=== PATIENT | female | born 1990 | race Caucasian/White ===

== ENCOUNTER 2017-04-04 18:18 | Inpatient (IN) | payer MEDICAID, OTHER ==
[2017-04-04 18:18] VITALS: BMI 19.3
[2017-04-04 18:21] VITALS: O2SAT 98
--- NOTE | 2017-04-04 19:45 | ED PDOC ---
HPI: Psych/Substance Abuse Time Seen by Provider: 04/04/17 19:20 Chief Complaint (Nursing): Psychiatric Evaluation History Per: Patient (26 Y/O FEMALE BROUGHT TO ED FOR EVALUATION OF EMOTIONAL CRISIS. PATIENT'S CUT HERSELF TODAY AND UPSET PATIENT. PATIENT STATES SHE HAS H/O DEPRESSION AND HAS BEEN OFF OF MEDICATIONS SINCE MOVE FROM [place]. IS CURRENTLY ONLY TAKING TEGRETOL FOR SEIZURES.) Past Medical History Reviewed: Historical Data, Nursing Documentation, Vital Signs Vital Signs: Last Vital Signs Temp 98.4 F 04/04/17 18:19 Pulse 84 04/04/17 18:19 Resp 18 04/04/17 18:19 BP 111/71 04/04/17 18:19 Pulse Ox 98 04/04/17 18:19 - Medical History PMH: Anxiety, Depression, Seizures - Family History Family History: States: Unknown Family Hx - Immunization History Hx Tetanus Toxoid Vaccination: Yes (2014) Hx Pneumococcal Vaccination: Yes - Home Medications Home Medications: Ambulatory Orders Medication Instructions Recorded Bacitracin 1 gm TOP BID #1 tube 11/02/15 Carbamazepine 200 mg PO TID 07/13/16 - Allergies Allergies/Adverse Reactions: Allergies Allergy/AdvReac Type Severity Reaction Status Date / Time shrimp Allergy Verified 08/18/16 14:40 Review of Systems ROS Statement: Except As Marked, All Systems Reviewed And Found Negative Physical Exam - Reviewed Nursing Documentation Reviewed: Yes Vital Signs Reviewed: Yes - Physical Exam Appears: Positive for: Well, Non-toxic, No Acute Distress Head Exam: Positive for: ATRAUMATIC, NORMAL INSPECTION, NORMOCEPHALIC Skin: Positive for: Normal Color, Warm, DRY Eye Exam: Positive for: EOMI, Normal appearance, PERRL ENT: Positive for: Normal ENT Inspection Neck: Positive for: Normal, Painless ROM Cardiovascular/Chest: Positive for: Regular Rate, Rhythm Respiratory: Positive for: CNT, Normal Breath Sounds Gastrointestinal/Abdominal: Positive for: Normal Exam, Bowel Sounds, Soft Back: Positive for: Normal Inspection Extremity: Positive for: Normal ROM Neurologic/Psych: Positive for: Alert, Oriented - Laboratory Results Urine POC: Negative - ECG O2 Sat by Pulse Oximetry: 98 Disposition - Clinical Impression Clinical Impression: Emotional crisis - Patient ED Disposition Is Patient to be Admitted: Transfer of Care - Disposition Disposition: Transfer of Care Disposition Time: 20:00 Condition: FAIR Forms: [facility] (Mongolian) Patient Signed Over To: Ayana Wilson Handoff Comments: CRISIS EVAL
[2017-04-04 19:56] LABS: BASO % 0.4 % (0.0-2.0); EOS # 0.3 K/uL (0.0-0.7); EOS % 2.5 % (0.0-4.0); HEMOGLOBIN 13.1 g/dL (12.0-16.0); LYMPH # 2.2 K/uL (1.0-4.3); LYMPH % 20.6 % (20.0-40.0); MEAN CELL VOLUME 90.2 fl (81.0-99.0); MEAN CORPUSCULAR HEMOGLOBIN 30.1 pg (27.0-31.0); MEAN CORPUSCULAR HGB CONC 33.4 g/dL (33.0-37.0); MEAN PLATELET VOLUME 8.9 fl (7.2-11.7); MONO # 0.4 K/uL (0.0-0.8); MONO % 4.1 % (0.0-10.0); NEUT # 7.8 K/uL (1.8-7.0); NEUT % 72.4 % (50.0-75.0); RBC 4.34 Mil/uL (3.80-5.20); RED CELL DISTRIBUTION WIDTH 13.2 % (11.5-14.5); WHITE BLOOD COUNT 10.7 K/uL (4.8-10.8)
[2017-04-04 20:08] LABS: ALB/GLOB RATIO 1.4 (1.0-2.1); ALBUMIN 4.5 g/dL (3.5-5.0); ALT/SGPT 31 U/L (9-52); AST/SGOT 26 U/L (14-36); BLOOD UREA NITROGEN 11 mg/dl (7-17); CALCIUM 9.3 mg/dL (8.4-10.2); GFR AFRICAN-AMERICAN > 60; GFR NON-AFRICAN AMERICAN > 60
[2017-04-04 20:19] LABS: BARBITURATES, UR NEGATIVE (NEGATIVE); BENZODIAZEPINES, UR NEGATIVE (NEGATIVE); OPIATES, UR NEGATIVE (NEGATIVE); PHENCYCLIDINE, UR NEGATIVE (NEGATIVE)
--- NOTE | 2017-04-04 20:23 | ED PDOC ---
- Laboratory Results Result Diagrams: 04/04/17 19:49 04/04/17 19:49 Urine POC: Negative - ECG ECG Rhythm: Positive for: Normal QRS, Normal ST Segment, Sinus Rhythm O2 Sat by Pulse Oximetry: 98 - Radiology X-Ray: Interpreted by Me X-Ray Interpretation: No Acute Disease - Progress ED Course And Treament: pt signed out to [facility] pending crisis eval. labs: WNL Medical Decision Making Medical Decision Making: Pt admits to crisis that there were multiple suicidal attempts. Pt [place] [facility] but declined. PT will be placed on 1:1 and Chest xray, EKG ordered. pt take Tegretol 200mg daily for seizures-will be ordered. PT is medically stable for [facility] [place] 00:00Pt agreed to signing into [facility] floor voluntary will be admitted for unspecified depressive d/o under MD gregg Disposition - Clinical Impression Clinical Impression: Depressive disorder - POA Present On Arrival: None - Disposition Disposition: Admitted as In-Patient Disposition Time: 00:01 Condition: STABLE Progress Note - Review of Symptoms General: No: Chills, Night Sweats, Fatigue, Malaise, Appetite, Other HEENT: No: Head Aches, Visual Changes, Eye Pain, Ear Pain, Dysphasia, Sinus Congestion, Post Nasal Drip, Sore Throat, Other Pulmonary: No: Dyspnea, Cough, Pleuritic Chest Pain, Other Cardiovascular: No: Chest Pain, Palpitations, Orthopnea, Paroxysmal Noc. Dyspnea , Edema, Light Headedness, Other Gastrointestinal: No: Nausea, Vomiting, Abdominal Pain, Diarrhea, Constipation, Melena, Hematochezia, Other Genitourinary: No: Dysuria, Frequency, Incontinence, Hematuria, Retention, Other Musculoskeletal: No: Muscle Pain, Joint Pain, Other Neurological: No: Weakness, Numbness, Incoordination, Change in speech, Confusion, Seizures, Other
[2017-04-04 20:24] LABS: SQUAMOUS EPITHIAL 3 /hpf (0-5); URINE BACTERIA RARE (<OCC); URINE BILIRUBIN NEGATIVE (NEGATIVE); URINE BLOOD NEGATIVE (NEGATIVE); URINE CLARITY CLOUDY (Clear); URINE COLOR YELLOW (YELLOW); URINE GLUCOSE (UA) NEG (Normal); URINE LEUKOCYTE ESTERASE NEG Leu/uL (Negative); URINE NITRATE NEGATIVE (NEGATIVE); URINE PROTEIN 30 mg/dL (NEGATIVE); URINE UROBILINOGEN 0.2-1.0 mg/dL (0.2-1.0)
[2017-04-04] MEDS ORDERED: carBAMazepine Chew Tab 100 MG Chew Tab ONE (22:41)
[2017-04-04] MEDS ORDERED: carBAMazepine Chew Tab 100 MG Chew Tab PO STA (22:42)
[2017-04-05] MEDS ORDERED: DiphenhydrAMINE 50 mg/ml Inj IM PRN (03:41)
[2017-04-05] MEDS ORDERED: Alum-Mag Hydrox-Simethicone Susp (30 mL) PO PRN (03:41)
[2017-04-05] MEDS ORDERED: Magnesium Hydroxide Susp 30 ml UD PO PRN (03:41)
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
[2017-04-05 08:36] LABS: HDL CHOLESTEROL 41 MG/DL (30-70)
[2017-04-05 08:46] LABS: LDL CHOLESTEROL 69 mg/dL (0-129)
[2017-04-05 09:14] VITALS: RESP 18
--- NOTE | 2017-04-05 11:16 | RAD ---
HISTORY: medical eval COMPARISON: No prior. TECHNIQUE: Chest PA and lateral FINDINGS: LUNGS: No active pulmonary disease. PLEURA: No significant pleural effusion identified. No pneumothorax apparent. CARDIOVASCULAR: Normal. OSSEOUS STRUCTURES: No significant abnormalities. VISUALIZED UPPER ABDOMEN: Normal. OTHER FINDINGS: None. IMPRESSION: No active disease.
--- NOTE | 2017-04-05 12:10 | CP.PCM.CON ---
History of Present Illness - History of Present Illness History of Present Illness: Pt is a 26 yo F with PMH of seizures, and psychiatric history of depression and anxiety who is admitted to the inpatient psychiatric unit due to suicidal ideation, depression and anxiety. Pt has had Pt states that her seizures started when she was 6 years old, and when she was 7-8, she was put on tegretol , the dose of which was increased gradually until current dose of 200 mg twice a day, which she has been on since age 15. Reports that last seizure was 2 days ago after which she was taken to [facility]; states that her seizures have a prodrome of feeling numbness in her extremities and especially her face, after which she loses consciousness. Reports that her seizures do not include tongue biting or incontinence. She reports that she has had 12 seizures in the past 2 months, most of which happened in [place], [place], which is where she and her were living until 3 weeks ago, and that she went to the hospital each time. She reports that she was seeing a neurologist in [place], but has not found one here yet since she has moved back. No PMD at this time Allergies: NKDA Denies past medical issues except for seizures. Past surgical history: x 2 OBGYN hx: menarche age 13, has had irregular cycle since menarche. LMP 2 months ago, pt denies possibility that she is . , 1 miscarriage at 3 weeks , pt does not know reason for miscarriage. Social Hx: Smokes 1PPD x 15 yrs, denies EtOH use, admits to frequent marijuana use but denies other drug use (cocaine, heroin, prescription painkillers). Lives in alf with . Pt is sexually active with , denies other partners. States she was recently screened for HIV. ROS: Positive for insomnia, anxiety. No unintentional weight loss, no fevers, chills. No skin changes, no rashes. No changes in vision, hearing. No chest pain, no palpitations. No shortness of breath. No cough or wheeze. No changes in toileting, no blood in stool or urine, no changes in urinating or stooling. No hot flashes, excessive sweating. No generalized or specific muscle pains/aches. Review of Systems - Constitutional Constitutional: As Per HPI - EENT Eyes: As Per HPI - Cardiovascular Cardiovascular: As Per HPI - Respiratory Respiratory: As Per HPI - Gastrointestinal Gastrointestinal: As Per HPI - Genitourinary Genitourinary: As Per HPI - Reproductive: Female Reproductive:Female: As Per HPI - Menstruation Menstruation: As Per HPI - Musculoskeletal Musculoskeletal: As Per HPI - Integumentary Integumentary: As Per HPI - Neurological Neurological: As Per HPI - Psychiatric Psychiatric: As Per HPI - Endocrine Endocrine: As Per HPI - Hematologic/Lymphatic Hematologic: As Per HPI Past Patient History - Tetanus Immunizations Tetanus Immunization: Unknown - Past Social History Smoking Status: Heavy Smoker > 10 Cigarettes Daily Alcohol: None Drugs: Cannabis - CARDIAC Hx Cardiac Disorders: No Hx Hypertension: No - PULMONARY Hx Respiratory Disorders: No Hx Tuberculosis: No - NEUROLOGICAL Hx Neurological Disorder: Yes HX Cerebrovascular Accident: No Hx Seizures: Yes - HEENT Hx HEENT Problems: No - RENAL Hx Chronic Kidney Disease: No - ENDOCRINE/METABOLIC Hx Endocrine Disorders: No - HEMATOLOGICAL/ONCOLOGICAL Hx Blood Disorders: No Hx Cancer: No Hx Human Immunodeficiency Virus (HIV): No - INTEGUMENTARY Hx Dermatological Problems: No - MUSCULOSKELETAL/RHEUMATOLOGICAL Hx Musculoskeletal Disorders: No - GASTROINTESTINAL Hx Gastrointestinal Disorders: No - GENITOURINARY/GYNECOLOGICAL Hx Genitourinary Disorders: No Hx Sexually Transmitted Disorders: No - PSYCHIATRIC Hx Psychophysiologic Disorder: Yes Hx Anxiety: Yes Hx Depression: Yes Hx Substance Use: Yes - SURGICAL HISTORY Hx Surgeries: Yes Hx Section: Yes (x2) - ANESTHESIA Hx Anesthesia: Yes Hx Anesthesia Reactions: No Hx Malignant Hyperthermia: No Meds Allergies/Adverse Reactions: Allergies Allergy/AdvReac Type Severity Reaction Status Date / Time shrimp Allergy Verified 08/18/16 14:40 - Medications Medications: Current Medications Acetaminophen (Tylenol 325mg Tab) 650 mg PO Q4 PRN PRN Reason: Pain, moderate (4-7) Al Hydrox/Mg Hydrox/Simethicone (Maalox Plus 30 Ml) 30 ml PO Q4 PRN PRN Reason: Dyspepsia Carbamazepine (Tegretol) 200 mg PO BID KAREN Last Admin: 04/05/17 09:34 Dose: 200 mg Diphenhydramine HCl (Benadryl) 50 mg IM Q6 PRN PRN Reason: Extrapyramidal S/S Unable PO Diphenhydramine HCl (Benadryl) 50 mg PO HS PRN PRN Reason: Sleep Haloperidol (Haldol) 5 mg PO Q4 PRN PRN Reason: Agitation Haloperidol Lactate (Haldol) 5 mg IM Q4 PRN PRN Reason: Agitation, Unable to Take PO Lorazepam (Ativan) 2 mg IM Q4 PRN PRN Reason: Anxiety/Agitation,Unable PO Lorazepam (Ativan) 1 mg PO Q4 PRN PRN Reason: Anxiety/Agitation Magnesium Hydroxide (Milk Of Magnesia) 30 ml PO HS PRN PRN Reason: Constipation Physical Exam - Constitutional Appears: Non-toxic, No Acute Distress - Head Exam Head Exam: NORMAL INSPECTION - Eye Exam Eye Exam: EOMI, Normal appearance, PERRL - ENT Exam ENT Exam: Mucous Membranes Moist - Respiratory Exam Respiratory Exam: Clear to Auscultation Bilateral, NORMAL BREATHING PATTERN. absent: Wheezes - Cardiovascular Exam Cardiovascular Exam: REGULAR RHYTHM, +S1, +S2 - GI/Abdominal Exam GI & Abdominal Exam: Normal Bowel Sounds, Soft - Extremities Exam Extremities exam: Positive for: full ROM, normal inspection. Negative for: calf tenderness, joint swelling - Neurological Exam Neurological exam: Alert, Oriented x3 - Skin Skin Exam: Dry, Normal Color, Warm Results - Vital Signs Recent Vital Signs: Last Vital Signs Temp 97.2 F L 04/05/17 09:13 Pulse 55 L 04/05/17 09:13 Resp 18 04/05/17 09:13 BP 105/53 L 04/05/17 09:13 Pulse Ox 98 04/05/17 04:27 - Labs Result Diagrams: 04/04/17 19:49 04/04/17 19:49 Labs: Laboratory Results - last 24 hr 04/05/17 07:45 Triglycerides 65 Cholesterol 132 LDL Cholesterol Direct 69 HDL Cholesterol 41 Assessment & Plan - Assessment and Plan (Free Text) Assessment: This is a 26 yo F with pmh seizure disorder, anxiety and depression who is admitted to inpatient psych unit due to anxiety and suicidal thoughts. Pt had seizure 2 days ago, seizure disorder is not well controlled. Plan: 1. Seizure disorder -Continue tegretol -obtain tegretol (carbamazepine) level -monitor for seizure activity -f/u with outpatient neurologist after discharge 2. Anxiety and depression -TSH/Free T4 level -primary management by inpt psychiatric team
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
--- NOTE | 2017-04-06 01:59 | CON ---
DATE: 04/05/2017 REASON FOR CONSULTATION: Seizure disorder. CHIEF COMPLAINT: The patient was brought in to [facility] being admitted in the psychiatric unit, because of seizure history, I was called in to evaluate her for further management. HISTORY OF PRESENT ILLNESS: Ms. Shan Virgen is a 26-year-old right-handed female in usual state of good health being admitted wit her severe depression and some anxiety disorder. She has been diagnosed with seizure disorder since she was childhood. She has been taking Tegretol 200 mg twice a day. She gets seizures at least three times per month. Last seizure was a day before yesterday. There is no warning on that seizure. Usually, she gets a warning like tingling sensation of her face and numbness of her legs. No history of biting tongue, no history of bowel and bladder incontinence was seen. PAST MEDICAL HISTORY: Anxiety disorder and depression. PAST SURGICAL HISTORY: History of section twice. SOCIAL HISTORY: She smokes 10 cigarettes per day and he uses cannabis. No history of alcohol use. She lives in a correction and is not working. ALLERGIES: ALLERGIC TO SHRIMP. REVIEW OF SYSTEMS: A 12-point systems have been reviewed and agree with her documentation except from neurological point of view, recurrent seizures. MEDICATIONS: Lorazepam, Benadryl, Haldol, Maalox, magnesium, Nicotine patch, Seroquel, Tegretol, and acefylline. PHYSICAL EXAMINATION: VITAL SIGNS: Blood pressure 112/77, mean arterial pressure of 80, respiratory rate 16, temperature is afebrile. HEENT: Supple. No carotid bruit. HEART: Sounds are regular. CHEST: Fair air entry. EXTREMITIES: No edema in legs. NEUROLOGIC EXAMINATION: MENTAL STATUS EXAMINATION: She is awake, alert and oriented to person, place, and time. Speech is clear and CN all within normal. CRANIAL NERVE EXAMINATION: Visual field intact. Pupils reactive to light. Extraocular movement normal. No nystagmus. No facial sensory deficit. No facial asymmetry. Hearing is normal. Tongue is midline. Good gag. MOTOR EXAMINATION: An outstretched hand with eyes closed, no drift is noted. Power is symmetric on either side. Deep tendon reflexes; biceps, brachialis, triceps, knee and ankle are 2+, plantars are downgoing. SENSORY EXAMINATION: Grossly intact. [id number]-ty-[id number] test is intact. Gait is normal. Tandem walking is good. CONCLUSION: Upon reviewing her recent neurological examination, she is presenting with a recurrent seizures probably is on therapeutic dose of carbamazepine. Concerning her age, the patient's dose can be increased to 400 mg twice a day and level should be watched to keep within therapeutic range. The patient should be getting good sleep schedule. Unwanted medications should be tapered off. Adverse effects of smoking and using illicit drugs have been addressed to her and she agreed with the plan of management. No further workup is needed at present. The patient will be followed closely with you. Pedro Smith MD MTDD
[2017-04-06 08:17] LABS: HDL CHOLESTEROL 38 MG/DL (30-70)
[2017-04-06 08:29] LABS: LDL CHOLESTEROL 66 mg/dL (0-129)
--- NOTE | 2017-04-06 13:12 | PCM.PYCHPN ---
Psychiatric Progress Note - Psychiatric Progress Note Patient seen today, length of contact: in treatment team Patient Chief Complaint: i feel much better Problems Identified/Issues Discussed: pt in good spirits. states she slept all night and is feeling much more clear. she appreciates meeting the neurologist. she is happy to get a referral to [facility]. she is denying medication side effects. she participates in groups. Medical Problems: seizure disorder Medication Change: No Medical Record Reviewed: Yes Consults ordered or reviewed: appreciate dr coughlin's consult Mental Status Examination - Cognitive Function Orientation: Person, Place, Situation, Time Memory: Intact Attention: WNL Concentration: WNL Association: [facility] Fund of Knowledge: [facility] Decription of patient's judgement and insights: fair - Mood Mood: Neutral - Affect Affect: Broad - Speech Speech: Appropriate - Formal Thought Process Formal Thought Process: No Impairment - Suicidal Ideation Suicidal Ideation: No - Homicidal Ideation Homicidal Ideation: No Goal/Treatment Plan - Goal/Treatment Plan Need for Continued Stay: Remain at risks for inpatient hospitalization, Discharge may exacerbated symptoms Progress Toward Problem(s) and Goals/Treatment Plan: major depression recurrent moderate continue current medications disposition planning- refer to [facility] neurology consult Estimated Date of D/C: 04/08/17
--- NOTE | 2017-04-06 18:19 | CARD ---
APPROVED REPORT EKG Measurement Heart [id number] <Conclusion> Sinus bradycardia with sinus arrhythmia Otherwise normal ECG
--- NOTE | 2017-04-07 10:35 | PCM.PYCHPN ---
Psychiatric Progress Note - Psychiatric Progress Note Patient seen today, length of contact: discussed with team Patient Chief Complaint: i feel great Problems Identified/Issues Discussed: pt remains in good spirits and his happy with her sleep. she is enthusiastic in groups and supportive of other clients. she is anticipating discharge tomorrow. Medical Problems: seizure disorder Medication Change: No Medical Record Reviewed: Yes Mental Status Examination - Cognitive Function Orientation: Person, Place, Situation, Time Memory: Intact Attention: WNL Concentration: WNL Association: [facility] Fund of Knowledge: [facility] Decription of patient's judgement and insights: fair - Mood Mood: Neutral - Affect Affect: Broad - Speech Speech: Appropriate - Formal Thought Process Formal Thought Process: No Impairment - Suicidal Ideation Suicidal Ideation: No - Homicidal Ideation Homicidal Ideation: No Goal/Treatment Plan - Goal/Treatment Plan Need for Continued Stay: Remain at risks for inpatient hospitalization, Discharge may exacerbated symptoms Progress Toward Problem(s) and Goals/Treatment Plan: major depression recurrent moderate continue current medications disposition planning- refer to [facility] neurology consult discharge tomorrow- will e-prescribe meds to [facility] pharmacy at [facility] [place] as it is most convenient to the patient. Estimated Date of D/C: 04/08/17 - Smoking Cessation Smoking Cessation Initiated: Yes
[2017-04-08 09:44] VITALS: BP 117/85; PULSE 68; TEMP 97.2
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
== END 2017-04-08 11:11 | disposition home or self-care (01) | DRG 885 ==
LOC: H.ER 18:18 → H.EROBSV 22:16 → OBSVTOIN 22:16 → H.ERHOLD 04-05 01:59 → H.PSYCH 04-05 04:26
PROVIDERS: ADMIT Psychiatry & Neurology Psychiatry; ATTEND Psychiatry & Neurology Psychiatry
PROC: GZHZZZZ Group Psychotherapy (ICD-10-PCS; principal; 2017-04-04)
PROC: GZ58ZZZ Individual Psychotherapy, Cognitive-Behavioral (ICD-10-PCS; 2017-04-04)
DX: F33.1 Major depressive disorder, recurrent, moderate (principal); G40.909 Epilepsy, unspecified, not intractable, without status epilepticus; F12.90 Cannabis use, unspecified, uncomplicated; F43.10 Post-traumatic stress disorder, unspecified; F41.9 Anxiety disorder, unspecified; R00.1 Bradycardia, unspecified; F17.210 Nicotine dependence, cigarettes, uncomplicated; G47.00 Insomnia, unspecified; Z62.810 Personal history of physical and sexual abuse in childhood; Z91.013 Allergy to seafood